=== PATIENT | female | born 1985 | race Caucasian/White ===

== ENCOUNTER 2024-02-04 17:30 | Emergency (ER) | payer OTHER, SELFPAY ==
[2024-02-04 17:38] VITALS: BP 119/89; PULSE 105; RESP 18; TEMP 37.3; O2SAT 98; BMI 20.6
--- NOTE | 2024-02-04 17:53 | ED.GENADULT ---
HPI - General Adult General Time Seen by Provider: 17:53 Date Seen: 02/04/24 Chief complaint: Unspecified Complaint, Adult Stated complaint: tooth pain Time Seen by Provider: 02/04/24 17:53 Source: patient Mode of arrival: ambulatory Limitations: no limitations History of Present Illness HPI narrative: Marilyn is a 38-year-old female previously healthy who had the onset of left lower jaw pain yesterday in a cracked tooth. Her significant other had left over amoxicillin from a dental infection that he had and she started on it. Tonight however she has increased swelling in the lower jaw and is feeling very cold. She also has increased pain. She denies a history of heart problems. Notes no . Is due to see the dentist in over time and a tomorrow. Related Data Home Medications ?Medication ?Instructions ?Recorded ?Confirmed No Known Home Medications 02/04/24 02/04/24 Allergies Allergy/AdvReac Type Severity Reaction Status Date / Time No Known Drug Allergies Allergy Verified 02/04/24 19:16 Review of Systems Status of ROS: Reports: 10 or more systems reviewed and unremarkable except as noted in History and below Const: Reports: chills; Denies: fever Eyes: Denies: change in vision ENMT: Reports: mouth pain; Denies: neck pain, throat swelling, difficulty swallowing or ear pain Cardio: Denies: chest pain or shortness of breath with exertion Resp: Denies: shortness of breath or cough GI: Denies: nausea, vomiting or difficulty swallowing Musculo: Denies: neck pain Allergy/Immuno: Denies: throat swelling PFSH PFSH Social History Do you use any of these nicotine containing products: E-Cigarettes Second hand tobacco smoke exposure: No How often do you have a drink containing alcohol: never AUDIT-C Alcohol total score: 0 Non-prescribed substance use: denies use service: No Exam Narrative: Exam Narrative: Alert and oriented. Pupils are normal size with EOM is full face is with asymmetry in swelling in the left lower jaw line. Tenderness noted in this area. Examination the oral cavity shows poor dentition in the left lower jaw line. I do not see any fluctuance at the gumline. Heart with regular rate and rhythm lungs are clear bilaterally moving all extremities. Const: Vital Signs, click to edit/add: Vital Signs - 24 hr 02/04/24 17:38 02/04/24 20:46 Temperature 99.2 F 98.8 F Pulse Rate [Pulse Oximeter] 105 H Respiratory Rate 18 20 Blood Pressure [Ri ght Upper Arm] 119/89 122/67 Pulse Oximetry 98 99 Oxygen Delivery Me thod Room Air Documenting provider has reviewed patient's vital signs: yes Course Course ED Course: At this time I do have significant concern regarding abscess given the swelling noted. Will place an IV draw labs to include CBC, basic panel, CRP. Will give 1 L of normal saline as she has not been able to eat or drink for the past 24 hours. Will give Toradol for the 15 mg IV. Plan on obtaining CT of the mandible for detection of abscess. Will give 2 g of IV Rocephin and 500 mg of Flagyl for soft tissue dental infection per up-to-date. Reevaluation(s) Reevaluation #1: Patient notes that she is feeling better with after IV fluids and Toradol. White count just over 11,000. Currently awaiting CT. Vital Signs Vital signs: Initial Vital Signs Temperature 99.2 F 02/04/24 17:38 Temperature Source Temporal Artery Scan 02/04/24 17:38 Pulse Rate 105 H 02/04/24 17:38 Pulse Rhythm Regular 02/04/24 17:38 Respiratory Rate 18 02/04/24 17:38 Blood Pressure 119/89 02/04/24 17:38 Blood Pressure Mean 99 02/04/24 17:38 Blood Pressure Position Sitting 02/04/24 17:38 Pulse Oximetry 98 02/04/24 17:38 Oxygen Delivery Method Room Air 02/04/24 17:38 Vital Signs Temperature 99.2 F 02/04/24 17:38 Pulse Rate 105 H 02/04/24 17:38 Respiratory Rate 18 02/04/24 17:38 Blood Pressure 119/89 02/04/24 17:38 Pulse Oximetry 98 02/04/24 17:38 Oxygen Delivery Method Room Air 02/04/24 17:38 Temperature 98.8 F 02/04/24 20:46 Pulse Rate 105 H 02/04/24 17:38 Respiratory Rate 20 02/04/24 20:46 Blood Pressure 122/67 02/04/24 20:46 Pulse Oximetry 99 02/04/24 20:46 Oxygen Delivery Method Room Air 02/04/24 17:38 Medications Administered Medications: Discontinued Medications Generic Name Dose Route Start Last Admin Trade Name Manuel PRN Reason Stop Dose Admin Sodium Chloride 500 mls @ 1,000 mls/hr 02/04/24 18:00 02/04/24 18:22 0.9 % Sodium Chloride 500 Ml IV 02/04/24 18:29 1,000 mls/hr .Q30M GAMALIEL Administration Ceftriaxone Sodium 2 gm/ 100 mls @ 200 mls/hr 02/04/24 18:00 02/04/24 18:48 Sodium Chloride IVPB 02/04/24 18:01 Infused ONCE ONE Infusion Metronidazole 500 mg in 100 mls @ 100 mls/hr 02/04/24 18:03 02/04/24 20:14 Metronidazole IVPB 02/04/24 19:02 Infused ONCE ONE Infusion Ketorolac Tromethamine 15 mg 02/04/24 18:00 02/04/24 18:22 Ketorolac 15 Mg/Ml Inj IVP 02/04/24 18:01 15 mg ONCE ONE Administration Metronidazole 500 mg 02/04/24 20:31 02/04/24 20:34 Metronidazole 500 Mg Tablet PO 02/04/24 20:32 500 mg ONCE ONE Administration Medical Decision Making MDM Narrative Medical decision making narrative: 1. Dental infection-fortunately no evidence of abscess on CT. Patient received amoxicillin prior to coming here but with increased swelling and pain did feel I needed to use IV antibiotics unless she received Rocephin 2 g IV and Flagyl 500 mg IV. She is given Flagyl 500 mg to be taken at 2 or 0300 hours. As a 2nd dose. She is following up at 0800 hours tomorrow morning with the dentist and therefore will not need any more antibiotics from our facility. Rocephin is Q 24 hours. Would recommend use of ibuprofen 800 mg every 8 hours as needed for pain. Did give her 6 tablets of [place] 5/3 25 1-2 tablets q.4-6 hours p.r.n. pain. She denies history of addiction and check of the [employer] does not yield significant controlled substance history. 2. Disposition-home at this time. Return for worsening symptoms. Otherwise follow-up with the dentist as planned for 0800 hours tomorrow morning Lab Data Lab results reviewed: Yes I reviewed the patient's lab results Labs: Lab Results 02/04/24 Range/Units 18:20 WBC 11.55 H (4.50-11.00) K/uL RBC 4.74 (4.00-5.20) m/uL Hgb 14.8 (12.0-16.0) gm/dL Hct 45.3 (33.0-51.0) % MCV 96 (80-100) fL MCH 31 (26-34) pg MCHC 33 (32-36) gm/dL RDW Coeff of Kristen 12.2 (11.5-15.5) % Plt Count 316 (140-440) K/uL Neut % (Auto) 73.3 H (42.0-72.0) % Lymph % (Auto) 13.1 L (20-44) % [place] % (Auto) 12.8 H (0.0-11.0) % Eos % (Auto) 0.3 (0.0-7.0) % Baso % (Auto) 0.3 (0.0-3.0) % Neut # (Auto) 8.50 H (1.7-7.0) K/uL Lymph # (Auto) 1.50 (0.90-2.90) K/uL [place] # (Auto) 1.50 H (0.00-0.90) K/UL Eos # (Auto) 0.00 (0.00-0.50) K/uL Baso # (Auto) 0.00 (0.00-0.30) K/uL Abs Immat Gran (auto) 0.00 (0.00-0.30) K/uL Imm/Tot Granulo (auto) 0.2 % Sodium 136 (135-149) mmol/L Potassium 4.3 (3.6-5.1) mmol/L Chloride 103 (96-114) mmol/L Carbon Dioxide 23 (20-32) mmol/L Anion Gap 10 (7-15) mEq/L BUN 15 (5-24) mg/dL Creatinine 0.7 (0.5-1.5) mg/dL Estimated Creat Clear 94.55 Estimated GFR 114 ml/min Glucose 84 (60-115) mg/dL Calcium 9.4 (8.4-10.6) mg/dL C-Reactive Protein 0.6 (0.5-1.0) mg/dL HCG, Qual Negative (Negative) Imaging Data Mandibular CT: Attestation: I have reviewed the pertinent imaging results. Radiologist's impression: Orbits and globes: Unremarkable. Globes are intact. No sign of intraorbital hemorrhage or emphysema. Sinuses: Mild right maxillary and bilateral sphenoid sinus mucosal thickening. Soft tissues: Mild soft tissue swelling along the left mandible without rim enhancing fluid collection. Facial bones: No fractures or bone lesions. No evidence of periapical lucencies. Specifically the nasal bones, temporomandibular joints, maxilla and mandible appear intact. IMPRESSION: Mild soft tissue swelling along the left mandible without underlying fluid collection. No evidence of periapical lucency or cortical erosion. Discharge Plan Discharge Clinical Impression: Dental infection Patient Disposition: Home, Self-Care Condition: Improved Additional Instructions: Instructions: Take 2nd dose of Flagyl at approximately 2 or 0300 hours. Ibuprofen 600 mg every 8 hours as needed for pain. For pain not relieved by ibuprofen you may use [place] which is a combination medication of hydrocodone a narcotic and Tylenol. Please do not take any extra Tylenol. Do not use alcohol, drive or participate in any activity where being tired or sedated would place you in danger. For your dentist tomorrow: CT done in the ED because of significant soft tissue swelling of the left lower jaw and gum line he did not show any discrete abscess, but only soft tissue swelling. Considerable discomfort with palpation along the gumline teeth 18, 19 and 20. Patient had taken a few doses of amoxicillin. In the ED patient received ceftriaxone 2 g IV and Flagyl 500 mg IV. A 2nd dose of Flagyl is planned in approximately 8 hours. No further antibiotics were given to this patient as she is seeing dentist at 0800 hours tomorrow. Prescriptions: No Action No Known Home Medications Follow Up/Referrals: Provider,Not a Local [Primary Care Provider] - Stand Alone Forms: [employer] Info Instructions
--- NOTE | 2024-02-04 18:00 | CRLHL7_ITS ---
For Patients: As a result of the Century Cures Act, medical imaging exams and procedure reports are released immediately into your electronic medical record. You may view this report before your referring provider. If you have questions, please contact your health care provider. INDICATION: Left lower jaw abscess TECHNIQUE: CT maxillofacial with 58 cc Isovue 370 IV contrast. COMPARISON: None. FINDINGS: Orbits and globes: Unremarkable. Globes are intact. No sign of intraorbital hemorrhage or emphysema. Sinuses: Mild right maxillary and bilateral sphenoid sinus mucosal thickening. Soft tissues: Mild soft tissue swelling along the left mandible without rim enhancing fluid collection. Facial bones: No fractures or bone lesions. No evidence of periapical lucencies. Specifically the nasal bones, temporomandibular joints, maxilla and mandible appear intact. IMPRESSION: Mild soft tissue swelling along the left mandible without underlying fluid collection. No evidence of periapical lucency or cortical erosion. Please note that all CT scans at this facility use dose modulation, iterative reconstruction, and/or weight-based dosing when appropriate to reduce radiation dose to as low as reasonably achievable. Dictated by Prachi Wilson MD @ 02/04/2024 8:05:26 PM (Electronically Signed)
[2024-02-04] MEDS: cefTRIAXone 2 GM in 0.9 % SODIUM CHLORIDE Mini-bag 100 ML IVPB (18:21)
[2024-02-04] MEDS: KETOROLAC 15 MG/ML inj IVP (18:22)
[2024-02-04] MEDS: 0.9 % SODIUM CHLORIDE 500 ML 500 ML 1000 ML IV (18:22)
[2024-02-04 18:32] LABS: Basophils Percent Auto 0.3 % (0.0-3.0); Eosinophils Percent Auto 0.3 % (0.0-7.0); Hematocrit 45.3 % (33.0-51.0); Hemoglobin* 14.8 gm/dL (12.0-16.0); Immature Granulocytes Pct Auto 0.2 %; Lymphocytes Percent Auto 13.1 % (20-44); Mean Corpuscular HGB Conc 33 gm/dL (32-36); Mean Corpuscular Hemoglobin 31 pg (26-34); Mean Corpuscular Volume 96 fL (80-100); Monocytes Percent Auto 12.8 % (0.0-11.0); Neutrophils Percent Auto 73.3 % (42.0-72.0); Platelet Count* 316 K/uL (140-440); RDW Coefficient of Variation % 12.2 % (11.5-15.5); Red Blood Count 4.74 m/uL (4.00-5.20); White Blood Count* 11.55 K/uL (4.50-11.00)
[2024-02-04 18:34] LABS: Slide Review Reflex No
[2024-02-04] MEDS: metroNIDAZOLE 500 MG/100 ML PIGGYBACK 100 MG IVPB (18:48)
[2024-02-04 18:53] LABS: Chloride* 103 mmol/L (96-114); Potassium* 4.3 mmol/L (3.6-5.1); Sodium* 136 mmol/L (135-149)
[2024-02-04 18:56] LABS: Creatinine* 0.7 mg/dL (0.5-1.5); Est. Creatinine Clearance* 94.55; Estimated Glomerular Filt Rate 114 ml/min
[2024-02-04 18:57] LABS: Anion Gap 10 mEq/L (7-15); Blood Urea Nitrogen* 15 mg/dL (5-24); Calcium* 9.4 mg/dL (8.4-10.6); Carbon Dioxide* 23 mmol/L (20-32); Glucose* 84 mg/dL (60-115)
[2024-02-04 18:59] LABS: HCG Qualitative Serum* Negative (Negative)
[2024-02-04 19:00] LABS: C Reactive Protein* 0.6 mg/dL (0.5-1.0)
[2024-02-04] MEDS: metroNIDAZOLE 500 MG TABLET PO (20:34)
[2024-02-04 20:46] VITALS: BP 122/67; RESP 20; TEMP 37.1; O2SAT 99
== END 2024-02-04 20:47 | disposition home or self-care (01) ==
PROVIDERS: Emergency Provider Family Medicine
DX: K04.7 Periapical abscess without sinus (principal)
CPT/HCPCS: 36415; 70487; 80048; 84703; 85025; 86140; 96365; 96366; 96375; 99284; A9270; J0696; J1836; J1885; J7030; Q9967